=== PATIENT | male | born 1955 | race Caucasian/White ===

== ENCOUNTER 2018-09-10 13:01 | Emergency (ER) | payer OTHER ==
[~2018-09-10] VITALS: Ht 177.8 cm; Wt 97.7 kg
[~2018-09-10 13:01] MED LIST: ALEVE220 MG PO; HYDROCODON-ACE1 EAC7 PO
[2018-09-10 13:13] VITALS: BP 154/96; Ht 177.8 cm; Wt 97.7 kg
== END 2018-09-10 15:39 | disposition left against medical advice (07) ==
LOC: D.ER 13:01
DX: M54.5 Low back pain (principal)